=== PATIENT | female | born 1950 | race Caucasian/White ===

== ENCOUNTER → 2016-07-29 | Outpatient (CLI) | payer MEDICARE, OTHER ==
[~2016-07-29] MED LIST: APIDINJ2 SQ; ASPI325T PO; BLOOD GLUCOSE T1 TES; GLUC1000 PO; LANTUS2P SQ; PROT40TA PO
--- NOTE | 2016-08-05 10:25 | RSPPFT ---
DATE OF PROCEDURE: 07/29/16 COMMENTS: Spirometry with FVC of 3.2 predicted 3.4, FEV1 of 2.7 predicted 2.7, FEV1/FVC ratio 86% predicted 76%. IMPRESSION: On the basis of the above, although the flow volume loop is less than optimum, the flow values appear to be within the predicted range.
== END ==
LOC: HRSP 11:40
PROVIDERS: ATTEND Family Medicine
DX: R06.00 Dyspnea, unspecified (principal)
CPT/HCPCS: 94060